=== PATIENT | female | born 1985 | race Asian ===

== ENCOUNTER → 2017-03-07 | Outpatient (CLI) | payer OTHER ==
[~2017-03-07] MED LIST: CALCTAB5 PO; PRENTAB26 PO
--- NOTE | 2017-03-07 11:05 | DIAGNOSTIC IMAGING REPORT ---
RIGHT HAND MIN 3 VIEWS ROUTINE CLINICAL HISTORY: 31 year-old Female presenting with RIGHT HAND PAIN. TECHNIQUE: Frontal, oblique, and lateral views of the right hand were obtained. COMPARISON: None FINDINGS: No acute fracture, malalignment, or radiopaque foreign body. Soft tissues grossly normal. IMPRESSION: 1. No acute osseous injury. Electronically signed by: Adan Hernandez 03/07/2017 11:04 AM Dictated Date/Time: 03/07/2017 11:00 AM
== END | disposition home or self-care (01) ==
LOC: C.RAD1850 10:43
PROVIDERS: ATTEND Family Medicine
DX: M79.641 Pain in right hand (principal)